=== PATIENT | male | born 1970 | race Caucasian/White ===

== ENCOUNTER 2017-08-21 12:31 | Emergency (ER) | payer BC, OTHER ==
[~2017-08-21] VITALS: Ht 172.7 cm; Wt 85.4 kg
[2017-08-21 12:34] VITALS: Ht 172.7 cm; Wt 85.4 kg
--- NOTE | 2017-08-21 14:38 | RADRPT ---
PROCEDURE: US Lower extremity Venous. CLINICAL INDICATION: Left leg edema, pain TECHNIQUE: Multiple sonographic images of the left lower extremity deep venous system was obtained utilizing grayscale, color-flow, compressive sonography and doppler imaging with augmentation. The images were reviewed on a PACS workstation. COMPARISON: None. FINDINGS: There is normal compressibility and flow within the left common femoral, femoral, posterior tibial, peroneal and popliteal veins. There is a 2.6 x 1.0 cm benign appearing lymph node in the left upper thigh. The soft tissues of the left calf are unremarkable. There is no focal fluid collection. RPTAT: AA IMPRESSION: No sonographic evidence for deep venous thrombosis. .Edwin Beckwith MD, MD Date Time Electronically viewed and signed by .Edwin Beckwith MD, on 08/21/2017 14:37 .S/
[2017-08-21] MEDS ORDERED: IBUP-1542 PO (15:36)
[2017-08-21] MEDS ORDERED: CEPH-443 PO (15:37)
--- NOTE | 2017-08-21 16:45 | ERD ---
ER Documentation Chief Complaint Chief Complaint Complais of a left leg pain x 1 week HPI 47-year-old male patient with a past medical history of diabetes presents to the ED complaining of left calf pain that started 1 week ago. Describes the pain as a burning sensation and rates it a 7 out of 10. Denies any injuries or trauma. Denies pulling a muscle. States that he was driving back from [place] round-trip, 3 weeks ago but did not experience the pain until 3 weeks later. Denies playing any sports. Denies any fever, chills, nausea, vomiting, loss of sensation, loss of range of motion. ROS All systems reviewed and are negative except as per history of present illness. Medications Home Meds Active Scripts Cephalexin* (Keflex*) 500 Mg Capsule, 500 MG PO QID for 7 Days, CAP Prov:CORBY MI PA-C 08/21/17 Ibuprofen* (Motrin*) 600 Mg Tab, 600 MG PO Q6, #20 TAB take with food Prov:CORBY MI PA-C 08/21/17 Allergies Allergies: Coded Allergies: No Known Drug Allergy (Verified Allergy, Unknown, 06/08/09) PMhx/Soc Medical and Surgical Hx: pt denies Medical Hx, pt denies Surgical Hx Hx Alcohol Use: No Hx Substance Use: No Hx Tobacco Use: No Smoking Status: Never smoker Physical Exam Vitals Vital Signs Date Time Temp Pulse Resp B/P Pulse Ox O2 Delivery O2 Flow Rate FiO2 08/21/17 12:34 97.2 95 20 171/98 98 Physical Exam Const: Dok-rai-[id number], well-nourished. In no acute distress. Head: Atraumatic, normocephalic Eyes: Normal Conjunctiva without injection ENT: Normal external ear, nose and mouth. Neck: Full range of motion. No meningismus. Resp: Clear to auscultation bilaterally. No wheezing, rhonchi, rales, or crackles. No accessory muscle use. No retractions. Cardio: Regular rate and rhythm, no murmurs Skin: No petechiae or rashes Back: No midline tenderness. No CVA tenderness. Ext: No cyanosis, or edema. Cap refill less than 2 seconds. Distal pulses intact bilaterally. Slightly brownish erythema noted in the left calf. No warmth to touch. Firm to palpation of the left calf compared to the right. Full range of motion. Neur: Awake and alert. Limping gait due to pain. Normal coordination. Muscle strength 5/5. Sensation intact bilaterally. Psych: Normal Mood and Affect Procedures/MDM 47-year-old male patient with a past medical history of diabetes presents to the ED complaining of left calf pain that started 1 week ago. Patient is afebrile and nontoxic-appearing. Patient has normal vital signs. A left venous ultrasound was ordered to further evaluate patient. PROCEDURE: US Lower extremity Venous. CLINICAL INDICATION: Left leg edema, pain TECHNIQUE: Multiple sonographic images of the left lower extremity deep venous system was obtained utilizing grayscale, color-flow, compressive sonography and doppler imaging with augmentation. The images were reviewed on a PACS workstation. COMPARISON: None. FINDINGS: There is normal compressibility and flow within the left common femoral, femoral , posterior tibial, peroneal and popliteal veins. There is a 2.6 x 1.0 cm benign appearing lymph node in the left upper thigh. The soft tissues of the left calf are unremarkable. There is no focal fluid collection. RPTAT: AA IMPRESSION: No sonographic evidence for deep venous thrombosis. Patient is neurovascularly intact. Patient's extremity symptoms have stabilized while they have been evaluated in the department and are appropriate for outpatient follow up. No evidence of fractures, dislocations, compartment syndrome, neurologic injury, vascular injury, open joint, open fracture, tendon laceration, septic arthritis, osteomyelitis, DVT, foreign body, or other emergent conditions. My supervising physician, Dr. Anna also evaluated this patient at this time and stated the patient likely has superficial thrombophlebitis and patient is appropriate for outpatient management with antibiotics. Diagnosis: Superficial Thrombophlebitis Discharge medications: Keflex, Ibuprofen Follow up with primary care physician in 1-2 days. Instructed patient to return to the ED sooner for any worsening symptoms. Patient's questions were answered. Patient understood and agreed with discharge plan. Patient discharged stable. Departure Diagnosis: Primary Impression: Pain of left leg Condition: Stable Patient Instructions: Thrombophlebitis, Superficial Referrals: BRET RODRIGUEZ MD (PCP) [facility] YOU HAVE RECEIVED A MEDICAL SCREENING EXAM AND THE RESULTS INDICATE THAT YOU DO NOT HAVE A CONDITION THAT REQUIRES URGENT TREATMENT IN THE EMERGENCY DEPARTMENT. FURTHER EVALUATION AND TREATMENT OF YOUR CONDITION CAN WAIT UNTIL YOU ARE SEEN IN YOUR DOCTORS OFFICE WITHIN THE NEXT 1-2 DAYS. IT IS YOUR RESPONSIBILITY TO MAKE AN APPOINTMENT FOR FOLOW-UP CARE. IF YOU HAVE A PRIMARY DOCTOR --you should call your primary doctor and schedule an appointment IF YOU DO NOT HAVE A PRIMARY DOCTOR YOU CAN CALL OUR PHYSICIAN REFERRAL HOTLINE AT IF YOU CAN NOT AFFORD TO SEE A PHYSICIAN YOU CAN CHOSE FROM THE FOLLOWING [facility] [address] [facility] [address] [facility] [address] [facility] [address] [facility] [address] [facility] [address] [facility]. [facility] YOU HAVE RECEIVED A MEDICAL SCREENING EXAM AND THE RESULTS INDICATE THAT YOU DO NOT HAVE A CONDITION THAT REQUIRES URGENT TREATMENT IN THE EMERGENCY DEPARTMENT. FURTHER EVALUATION AND TREATMENT OF YOUR CONDITION CAN WAIT UNTIL YOU ARE SEEN IN YOUR DOCTORS OFFICE WITHIN THE NEXT 1-2 DAYS. IT IS YOUR RESPONSIBILITY TO MAKE AN APPOINTMENT FOR FOLOW-UP CARE. IF YOU HAVE A PRIMARY DOCTOR --you should call your primary doctor and schedule and appointment IF YOU DO NOT HAVE A PRIMARY DOCTOR YOU CAN CALL OUR PHYSICIAN REFERRAL HOTLINE AT . IF YOU CAN NOT AFFORD TO SEE A PHYSICIAN YOU CAN CHOSE FROM THE FOLLOWING [facility]: [facility] [address] [place] [address] [facility] [address] [place] [address] [facility] + [facility] [address] [place] [address] [facility] URGENT CARE/SPECIALTIES Additional Instructions: Call your primary care doctor TOMORROW for an appointment during the next 2-3 days.See the doctor sooner or return here if your condition worsens before your appointment time. CORBY MI PA-C Aug 21, 2017 16:45
== END 2017-08-21 15:44 | disposition home or self-care (01) ==
LOC: FTE 12:31
DX: M79.605 Pain in left leg (principal); E11.9 Type 2 diabetes mellitus without complications
CPT/HCPCS: 93971

== ENCOUNTER 2018-08-22 13:18 | Emergency (ER) | END 2018-08-22 19:53 | disposition home or self-care (01) ==